=== PATIENT | male | born 1975 | race Two or more races ===

== ENCOUNTER 2021-11-18 07:48 | Emergency (ER) | payer OTHER ==
[~2021-11-18] VITALS: Ht 177.8 cm; Wt 77.0 kg
--- NOTE | 2021-11-18 09:08 | PHYS DOC ---
Past History Past Medical History: DVT (ADAM RENE) Additional Past Surgical Histo: L ankle repair (ADAM RENE) Smoking: Non-smoker Alcohol Use: Rarely Drug Use: None (ADAM RENE) General Adult EDM: Chief Complaint: ANKLE PROBLEM HPI: HPI: Patient is a 46 year old male with history of DVT who presents with left calf pain. Patient reports that when he woke up this morning, his left ankle was "reddish-purple" with pain proximal to the discoloration. He states that this pain "feels familiar" from his prior DVT. Patient recently had a surgery on his left ankle to remove debris from a prior tramatic injury and has been on a prophylactic lovenox regimen. In 2019, patient broke his left tib/fib and had a DVT. He was placed on Lovenox after his surgical repair. Patient states he had a "full 90 day regimen" and the blood thinner was discontinued. After the recent ankle scope debriedment, he was placed on 40 Lovenox daily, with today being his last dose. (ADAM RENE) Review of Systems: Review of Systems: Constitutional: Denies fever, chills or generalized weakness Eyes: Denies change in visual acuity, visual field deficits or discharge HENT: Denies ear pain, nasal congestion or sore throat Respiratory: Denies cough or shortness of breath Cardiovascular: Denies chest pain, palpitations or edema GI: Denies abdominal pain, nausea, vomiting, bloody stools or diarrhea : Denies dysuria or hematuria Musculoskeletal: See HPI Integument: See HPI Neurologic: Denies headache, focal weakness or sensory changes (ADAM RENE) Allergies: Allergies: Allergies Coded Allergies Type Severity Reaction Last Updated Verified No Known Drug Allergies 11/18/21 No (ADAM RENE) Physical Exam: PE: Constitutional: Well developed, well nourished, no acute distress, non-toxic appearance. HENT: Normocephalic, atraumatic, bilateral external ears normal, nose normal. Eyes: EOMI, conjunctiva normal, no discharge. Neck: Normal range of motion, no stridor. Skin: Warm, dry, no erythema, no rash. Extremities: Tenderness along venous track lower leg, no unilateral swelling or skin discoloration appreciated, no cyanosis, no clubbing, ROM intact, no edema. Neurologic: Alert and oriented x4, no focal deficits noted. (ADAM RENE) Current Patient Data: Vital Signs: Vital Signs Date Time Temp Pulse Resp B/P (MAP) Pulse Ox O2 Delivery O2 Flow Rate FiO2 11/18/21 08:47 97.5 88 16 134/83 (100) 96 (ADAM RENE) Radiology/Procedures: Radiology/Procedures: PROCEDURE: VENOUS LOWER EXTREMITY LEFT US DPLX VENOUS EXTREMITY LOWER LT History: Reason: calf pain, hx DVT / Spl. Instructions: / History: Comparison: None. Technique: Multiple longitudinal and transverse high resolution real-time images of the venous system of left lower extremity were obtained with color and Doppler sampling. Findings: Patent left common femoral, superficial femoral, deep femoral, popliteal and posterior tibial veins. Occlusive thrombus within the left mid peroneal vein. Impression: 1. Occlusive deep vein thrombus within the left mid peroneal vein. Electronically signed by: Krishna Garrido DO (11/18/2021 10:00 AM) [id number] (ADAM RENE) Heart Score: C/O Chest Pain: No (ADAM RENE) Course & Med Decision Making: Course & Med Decision Making Pertinent Labs and Imaging studies reviewed. (See chart for details) Patient is a 46-year-old male who presents with left lower extremity pain that is similar to prior DVT symptoms. Patient recently had a joint scope done of his left ankle with debridement status post traumatic injury. Today, he was concerned with pain and skin discoloration. He has been on prophylactic dose of Lovenox since the surgical debridement. I spoke with Marisel (nurse practitioner on cardiology service) about patient case. She does concur that treatment dose of anticoagulation is necessary. Marisel also advises that the patient have a hematology work-up for recurrent DVT and an otherwise healthy individual. These recommendations were discussed with the patient. Return precautions and follow-up contact information for hematology were provided. Patient understands and is agreeable to discharge plan. Patient's prescription was originally sent to [facility], however it was closed when the patient arrived. He went to a different [facility], and they stated that they could not obtain the prescription because there was no one at the original pharmacy to transfer it. Xarelto prescription was then called into [facility] in [facility]. (ADAM RENE) Course & Med Decision Making I was the Attending physician on the above date of service of this patient. This patient was evaluated, examined, treated, and dispositioned from the emergency department by the mid-level practitioner. I reviewed case with midlevel practitioner and agreed to ensuring treatment via Xarelto which will likely be indefinite due to recurrent DVT Electronically signed, Rain Herron DO (RAIN HERRON DO) Marti Disclaimer: Marti Disclaimer: This electronic medical record was generated, in whole or in part, using a voice recognition dictation system. (ADAM RENE) Departure Departure: Impression: Primary Impression: Recurrent deep vein thrombosis (DVT) of left lower extremity Disposition: HOME / SELF CARE / HOMELESS Condition: STABLE Referrals: ROBERT CUNNINGHAM (PCP) GIOVANI SAPP MD Patient Instructions: Deep Vein Thrombosis Additional Instructions: EMERGENCY DEPARTMENT GENERAL DISCHARGE INSTRUCTIONS Thank you for coming to [facility] (ED) today and trusting us with you care. We trust that you had a positive experience in our Emergency Department. If you wish to speak to the department management, you may call the director at [phone]. YOUR FOLLOW UP INSTRUCTIONS ARE FOLLOWS: 1. Follow up with your primary care doctor. If you do not have a primary doctor, please ask for a resource list of physicians or clinics that may be able to assist you with follow up care. 2. The emergency provider has interpreted your imaging studies, if any were ordered. The radiology market risk specialist also reviewed them. If there is a change in the findings, you will be notified in 48 hours when at all possible. 3. If a lab test or culture has been done, your results will be reviewed and you will be notified if you need a change in treatment. 4. Follow instructions verbalized to you and refer to the printouts if needed. ADDITIONAL INSTRUCTIONS AND INFORMATION: 1. Your care today has been supervised by a physician who is specially trained in emergency care. Many problems require more than one evaluation for a complete diagnosis and treatment. We recommend that you schedule your follow up appointment as recommended to ensure complete treatment of you illness or injury. If you are unable to obtain follow up care and continue to have a problem, or if your condition worsens, we recommend that you return to the ED. 2. We are not able to safely determine your condition over the phone nor are we able to give sound medical advice over the phone. For these safety reasons, if you call for medical advice we will ask you to come to the ED for further evaluation. 3. If you have any questions regarding these discharge instructions please call the ED at [phone]. SAFETY INFORMATION: In the interest of safety, wellness, and injury prevention; we encourage you to wear your seat belt, if you smoke; quite smoking, and we encourage family to use a protective helmet for bicycling and other sporting events that present an increased risk for head injury. IF YOUR SYMPTOMS WORSEN OR NEW SYMPTOMS DEVELOP, OR YOU HAVE CONCERNS ABOUT YOUR CONDITION; OR IF YOUR CONDITION WORSENS WHILE YOU ARE WAITING FOR YOUR FOLLOW UP APPOINTMENT; EITHER CONTACT YOUR PRIMARY CARE DOCTOR, THE PHYSICIAN WHOSE NAME AND NUMBER YOU WERE GIVEN, OR RETURN TO THE ED IMMEDIATELY. ADAM RENE Nov 18, 2021 09:08 RAIN HERRON DO Nov 19, 2021 08:14
--- NOTE | 2021-11-18 10:03 | RAD ---
US DPLX VENOUS EXTREMITY LOWER LT History: Reason: calf pain, hx DVT / Spl. Instructions: / History: Comparison: None. Technique: Multiple longitudinal and transverse high resolution real-time images of the venous system of left lower extremity were obtained with color and Doppler sampling. Findings: Patent left common femoral, superficial femoral, deep femoral, popliteal and posterior tibial veins. Occlusive thrombus within the left mid peroneal vein. Impression: 1. Occlusive deep vein thrombus within the left mid peroneal vein. Electronically signed by: Krishna Garrido DO (11/18/2021 10:00 AM) [id number]
[2021-11-18] MEDS ORDERED: RIVA15TA PO (10:39)
[2021-11-18 11:21] VITALS: BP 122/70
== END 2021-11-18 11:22 | disposition home or self-care (01) ==
LOC: ER 07:48
DX: I82.402 Acute embolism and thrombosis of unspecified deep veins of left lower extremity (principal); Z86.718 Personal history of other venous thrombosis and embolism
CPT/HCPCS: 93971; 99284

== ENCOUNTER 2022-01-29 11:08 | Emergency (ER) | payer OTHER ==
[~2022-01-29] VITALS: Ht 177.8 cm; Wt 80.3 kg
[~2022-01-29 11:08] MED LIST: RIVA15TA PO
[2022-01-29 11:17] VITALS: BP 125/89
--- NOTE | 2022-01-29 11:28 | PHYS DOC ---
Past History Past Medical History: DVT Additional Past Medical Histor: BLOOD CLOT (CHANDNI SHARMA APRN) Past Surgical History: No Surgical History Additional Past Surgical Histo: L ankle repair (CHANDNI SHARMA APRN) Smoking: Non-smoker Alcohol Use: Occasionally Drug Use: None (CHANDNI SHARMA APRN) General Adult EDM: Chief Complaint: LOWER EXT PAIN HPI: HPI: Patient is a 46-year-old male who presents to the emergency department for bilateral calf pain. Patient has a history of a DVT and is on Xarelto. His last DVT diagnosis was in November. He reports that he has been having this Pain since November but has worsened over the last 10 days. Patient rates his pain 3 out of 10. He denies any swelling, redness, fever, chest pain, shortness of breath. (CHANDNI SHARMA APRN) Review of Systems: Review of Systems: Constitutional: See HPI Respiratory: See HPI Cardiovascular: See HPI Musculoskeletal: See HPI Integument: See HPI (CHANDNI SHARMA APRN) Allergies: Allergies: Allergies Coded Allergies Type Severity Reaction Last Updated Verified No Known Drug Allergies 01/29/22 No (CHANDNI SHARMA APRN) Physical Exam: PE: Constitutional: Well developed, well nourished, no acute distress, non-toxic sandra earance. [] HENT: Normocephalic, atraumatic, bilateral external ears normal, oropharynx moist, no oral exudates, nose normal. [] Eyes: PERRL, EOMI, conjunctiva normal, no discharge. [] Neck: Normal range of motion, no tenderness, supple, no stridor. [] Cardiovascular:Heart rate regular rhythm, no murmur [] Lungs & Thorax: Bilateral breath sounds clear to auscultation [] Abdomen: Bowel sounds normal, soft, no tenderness, no masses, no pulsatile masses. [] Skin: Warm, dry, no erythema, no rash. [] Back: No tenderness, normal range of motion Extremities: No tenderness, no cyanosis, no clubbing, ROM intact, no edema. [] Bilateral lower extremities: Pain with palpation to calf, there is no edema no any, no redness, warmth, wounds, neuro intact, range of motion intact, negative Homans test Neurologic: Alert and oriented X 3, normal motor function, normal sensory function, no focal deficits noted. [] Psychologic: Affect normal, judgement normal, mood normal. [] (CHANDNI SHARMA [employer]ENGER TRAIN) Current Patient Data: Labs: Laboratory Tests Test 01/29/22 11:28 White Blood Count 5.1 x10^3/uL Red Blood Count 4.66 x10^6/uL Hemoglobin 15.7 g/dL Hematocrit 45.6 % Mean Corpuscular Volume 98 fL Mean Corpuscular Hemoglobin 34 pg Mean Corpuscular Hemoglobin Concent 34 g/dL Red Cell Distribution Width 12.5 % Platelet Count 203 x10^3/uL Neutrophils (%) (Auto) 56 % Lymphocytes (%) (Auto) 33 % Monocytes (%) (Auto) 10 % Eosinophils (%) (Auto) 1 % Basophils (%) (Auto) 1 % Neutrophils # (Auto) 2.8 x10^3uL Lymphocytes # (Auto) 1.6 x10^3/uL Monocytes # (Auto) 0.5 x10^3/uL Eosinophils # (Auto) 0.1 x10^3/uL Basophils # (Auto) 0.0 x10^3/uL Prothrombin Time 12.5 SEC Prothromb Time International Ratio 1.2 Activated Partial Thromboplast Time 32 SEC Sodium Level 141 mmol/L Potassium Level 3.6 mmol/L Chloride Level 105 mmol/L Carbon Dioxide Level 28 mmol/L Anion Gap 8 Blood Urea Nitrogen 13 mg/dL Creatinine 1.0 mg/dL Estimated GFR (Cockcroft-Gault) 81.2 BUN/Creatinine Ratio 13 Glucose Level 123 mg/dL Calcium Level 8.8 mg/dL Total Bilirubin 0.4 mg/dL Aspartate Amino Transf (AST/SGOT) 25 U/L Alanine Aminotransferase (ALT/SGPT) 33 U/L Alkaline Phosphatase 64 U/L Troponin I High Sensitivity 6 ng/L Total Protein 6.9 g/dL Albumin 3.7 g/dL Albumin/Globulin Ratio 1.2 Vital Signs: Vital Signs Date Time Temp Pulse Resp B/P (MAP) Pulse Ox O2 Delivery O2 Flow Rate FiO2 01/29/22 11:17 125/89 (101) (CHANDNI SHARMA [employer]GER TRAIN) EKG: EKG: EKG performed by ER staff at 1136 shows sinus rhythm with a rate of 85, QTC is 424, no STEMI read by Dr. Begum at 1140. [] (CHANDNI SHARMA APRN) Radiology/Procedures: Radiology/Procedures: []PROCEDURE: VENOUS LOWER EXT BILATERAL EXAMINATION: US BILATERAL LOWEREXTREMITY VENOUS DOPPLER, 01/29/2022 11:43 AM CLINICAL INDICATION: Lower extremity pain, history of DVT COMPARISON: DVT ultrasound 11/18/2021 PROCEDURE: Multiple grayscale, color Doppler and spectral Doppler sonographic images of the bilateral lower extremities were obtained. FINDINGS: There is no evidence of deep venous thrombosis in either lower extremity. The bilateral common femoral, femoral and popliteal veins are echolucent with normal flow on color Doppler imaging. The veins are fully compressible and show normal phasicity and reaction to augmentation. Visualized calf veins are also normal in appearance. IMPRESSION: No evidence of deep venous thrombosis in either lower extremity. The DVT in the left peroneal vein on 11/18/2021 is not definitively seen on this exam. Electronically signed by: Ankita Monte MD (01/29/2022 12:28 PM) [id number] DICTATED AND SIGNED BY: AKNITA MONTE MD DATE: 01/29/22 1225 CC: ROBERT CUNNINGHAM; CHANDNI SHARMA APRN ~ (CHANDNI SHARMA APRN) Heart Score: C/O Chest Pain: No Risk Factors: Risk Factors: DM, Current or recent (<one month) smoker, HTN, HLP, family history of CAD, obesity. Risk Scores: Score 0 - 3: 2.5% MACE over next 6 weeks - Discharge Home Score 4 - 6: 20.3% MACE over next 6 weeks - Admit for Clinical Observation Score 7 - 10: 72.7% MACE over next 6 weeks - Early Invasive Strategies (CHANDNI SHARMA APRN) Course & Med Decision Making: Course & Med Decision Making Pertinent Labs and Imaging studies reviewed. (See chart for details) [] Patient presents to the emergency department for bilateral calf pain. Patient has a history of DVT. His modified Wells score is 1. Work-up in the ER consisted of blood work including coags, EKG, ultrasound of bilateral lower extremities. Blood work unremarkable. Ultrasound does not show any blood clots. Patient is likely experiencing a muscle cramp or spasm, he was treated with anti-inflammatory medication. Advised to continue his Xarelto as previous DVT is not seen on this scan. Advise follow-up with primary care provider. I discussed with patient all findings and diagnostic testing as well as the need to follow-up with PCP for further evaluation and treatment or return to the ER if any new or worsening symptoms. Strict return precautions were also discussed at length. Patient voiced understanding and agreement with the plan. Patient is hemodynamically stable at the time of disposition. (CHANDNI SHARMA APRN) Dragon Disclaimer: Dragon Disclaimer: This electronic medical record was generated, in whole or in part, using a voice recognition dictation system. (CHANDNI SHARMA APRN) Attending Co-Sign The patient was seen and interviewed as well as examined at the bedside. The chart was reviewed. The case was discussed. Agree with the plan of care. (ALISSA BEGUM DO) Departure Departure: Impression: Primary Impression: Muscle cramp Disposition: HOME / SELF CARE / HOMELESS Condition: GOOD Referrals: ROBERT CUNNINGHAM (PCP) Patient Instructions: Muscle Cramps Additional Instructions: You were seen in the emergency department for bilateral calf pain. Ultrasound does not show any blood clot and your blood work was unremarkable. Please continue to take your Xarelto. You are likely experiencing a muscle spasm or muscle cramping you can take anti-inflammatory medications. Follow-up with your primary care provider tomorrow regarding your ER visit. Return to the emergency department if you develop worsening of your pain, leg swelling, fevers, redness/warmth to lower extremities, chest pain, shortness of breath. CHANDNI SHARMA APRN Jan 29, 2022 11:28 ALISSA BEGUM DO Jan 30, 2022 06:07
[2022-01-29 11:44] LABS: BASO % 1 % (0-3); EOS # 0.1 x10^3/uL (0.0-0.7); EOS % 1 % (0-3); HEMATOCRIT 45.6 % (39.0-53.0); HEMOGLOBIN 15.7 g/dL (13.0-17.5); LYMPH # 1.6 x10^3/uL (1.0-4.8); LYMPH % 33 % (24-48); MEAN CORPUSCULAR HEMOGLOBIN 34 pg (25-35); MEAN CORPUSCULAR HGB CONC 34 g/dL (31-37); MEAN CORPUSCULAR VOLUME 98 fL (79-100); MONO # 0.5 x10^3/uL (0.0-1.1); MONO % 10 % (0-9); NEUT # 2.8 x10^3uL (1.8-7.7); NEUT % 56 % (31-73); PLATELET COUNT 203 x10^3/uL (140-400); RED BLOOD COUNT 4.66 x10^6/uL (4.30-5.70); RED CELL DISTRIBUTION WIDTH 12.5 % (11.5-14.5); WHITE BLOOD COUNT 5.1 x10^3/uL (4.0-11.0)
[2022-01-29 12:03] LABS: CALCIUM 8.8 mg/dL (8.5-10.1); GFR 81.2; POTASSIUM 3.6 mmol/L (3.5-5.1)
[2022-01-29 12:09] LABS: ALBUMIN 3.7 g/dL (3.4-5.0); ALBUMIN/GLOBULIN RATIO 1.2 (1.0-1.7); TOTAL BILIRUBIN 0.4 mg/dL (0.2-1.0); TOTAL PROTEIN 6.9 g/dL (6.4-8.2)
--- NOTE | 2022-01-29 12:30 | RAD ---
EXAMINATION: US BILATERAL LOWEREXTREMITY VENOUS DOPPLER, 01/29/2022 11:43 AM CLINICAL INDICATION: Lower extremity pain, history of DVT COMPARISON: DVT ultrasound 11/18/2021 PROCEDURE: Multiple grayscale, color Doppler and spectral Doppler sonographic images of the bilateral lower extremities were obtained. FINDINGS: There is no evidence of deep venous thrombosis in either lower extremity. The bilateral com mon femoral, femoral and popliteal veins are echolucent with normal flow on color Doppler imaging. Th e veins are fully compressible and show normal phasicity and reaction to augmentation. Visualized brigida f veins are also normal in appearance. IMPRESSION: No evidence of deep venous thrombosis in either lower extremity. The DVT in the left reji brianna vein on 11/18/2021 is not definitively seen on this exam. Electronically signed by: Ankita Monte MD (01/29/2022 12:28 PM) [id number]
[2022-01-29] MEDS ORDERED: KETOROLAC 15 MG/ML VIAL. IVP ONE (12:45)
--- NOTE | 2022-01-30 18:45 | EKG ---
[address] [id number] Test Date: 2022-01-29 Test Time: 11:36:20 Pat Name: [facility] Department: Room: Gender: M Mft: : 1975 Requested By: CHANDNI SHARMA Order Number: [id number] Reading MD: Measurements Intervals [place] Rate: 85 P: 26 AL: 140 QRS: 50 QRSD: 98 T: 21 QT: 356 QTc: 424 Interpretive Statements SINUS RHYTHM QRS(T) CONTOUR ABNORMALITY CONSIDER ANTEROSEPTAL MYOCARDIAL DAMAGE POSSIBLY ABNORMAL ECG RI6.01 No previous ECG available for comparison
== END 2022-01-29 12:46 | disposition home or self-care (01) ==
LOC: ER 11:08
DX: R25.2 Cramp and spasm (principal); M79.662 Pain in left lower leg; M79.661 Pain in right lower leg; Z86.718 Personal history of other venous thrombosis and embolism; Z79.01 Long term (current) use of anticoagulants
CPT/HCPCS: 36415; 80053; 84484; 85025; 85610; 85730; 93005; 93970; 96374; 99285; J1885